=== PATIENT | female | born 1935 | race Caucasian/White ===

== ENCOUNTER 2018-02-23 08:30 | Inpatient (IN) ==
[2018-04-27] MEDS ORDERED: Chlorhexidine Gluconate 2% 1 Pack (2 Cloths) TOPICAL ONE (05:34)
[2018-04-27] MEDS ORDERED: Metoprolol Tartrate 25 MG Tablet PO ONE (05:34)
[2018-04-27] MEDS ORDERED: Dexamethasone Inj 20 MG/5 ML Vial IV.PUSH ONE (05:35)
[2018-04-27] MEDS ORDERED: Chlorhexidine 4% Topical 120 APPLIC/120 ML Bottle TOPICAL SCH (05:45)
[2018-04-27] MEDS ORDERED: Vancomycin Inj 1,000 MG in Sodium Chlor 0.9% Inj 250 ML IV.SIG SCH (06:00)
[2018-04-27] MEDS ORDERED: ceFAZolin 2 GM Premix Inj 2 GM/50 ML PIGGYBACK IV.SIG SCH (06:00)
[2018-04-27] MEDS ORDERED: Sodium Chlor 0.9% Inj 500 ML IV.SIG SCH (06:00)
[2018-04-27] MEDS ORDERED: fentaNYL Citrate Inj 100 MCG/2 ML Ampul ONE ×2 (06:19→07:50)
[2018-04-27] MEDS ORDERED: fentaNYL Citrate Inj 250 MCG/5 ML Ampul ONE (06:19)
[2018-04-27] MEDS ORDERED: Famotidine PF Inj 20 MG/2 ML Vial ONE (06:19)
[2018-04-27] MEDS ORDERED: Post-op Orders (for Pharmacy) OTHER STA (06:41)
[2018-04-27] MEDS ORDERED: Bisacodyl 10 MG Supp RECTAL PRN (06:41)
[2018-04-27] MEDS ORDERED: Zolpidem Tartrate 5 MG Tablet PO PRN (06:41)
[2018-04-27] MEDS ORDERED: Neostigmine Inj 5 MG/5 ML Syringe IV.PUSH ONE (06:47)
[2018-04-27] MEDS ORDERED: Phenylephrine/NS 1000 MCG/10ML Syringe IV.PUSH ONE (06:47)
[2018-04-27] MEDS ORDERED: Lidocaine PF 1% Inj 5 ML Syringe OTHER ONE (06:47)
[2018-04-27] MEDS ORDERED: Glycopyrrolate Inj 1 MG/5 ML Syringe IV.PUSH ONE (06:47)
[2018-04-27] MEDS ORDERED: Sodium Chlor 0.9% Inj 100 ML, Tranexamic Acid Inj 3,000 MG P-ARTICULR SCH ×2 (07:00)
[2018-04-27] MEDS ORDERED: TRANEXAMIC ACID IV.SIG SCH (07:00)
[2018-04-27] MEDS ORDERED: SODIUM CHLOR 0.9% IV.SIG SCH (07:00)
[2018-04-27] MEDS ORDERED: Sodium Chlor 0.9% Inj 73.07 ML, Ropivacaine 0.5% PF Inj 24.63 ML, Ketorolac Inj 30 MG, ... P-ARTICULR SCH ×5 (07:00)
[2018-04-27] MEDS ORDERED: Thrombin Topical Soln 5,000 UNIT Vial TOPICAL ONE (08:05)
[2018-04-27] MEDS ORDERED: *Meperidine Inj 25 MG/ML Vial PERIprocedural Use ONLY ONE (09:12)
--- NOTE | 2018-04-27 09:20 | MP ---
cc: Gigi Balbuena MD DATE OF OPERATION: 04/27/2018 PREOPERATIVE DIAGNOSIS: Left knee osteoarthritis. POSTOPERATIVE DIAGNOSIS: Left knee osteoarthritis. PROCEDURE: Left total knee arthroplasty. SURGEON: Gigi Balbuena MD. PACKER AND CARRY OUT: BEE Handy. ANESTHESIA: General. ESTIMATED BLOOD LOSS: 200 mL. TOURNIQUET TIME: 25 minutes at 250 mmHg. COMPLICATIONS: None. IMPLANT USED: DePuy Attune size 6 posterior stabilized femoral component, size 6 rotating platform tibial baseplate, size 7 mm polyethylene tibial insert, and size 38 patella. JUSTIFICATION: This patient is an 82-year-old female with a history of severe endstage osteoarthritis involving the left knee joint. She has severe disabling pain with standing, walking, ambulation with activities, and severe pain at rest. She has failed greater than 3 months of nonoperative conservative treatment to include medication therapy, injections, ambulatory assistive aids, home exercise program, activity modification, and weight loss. X-rays of the left knee reveal severe osteoarthritis with joint space narrowing, subchondral sclerosis, subchondral cyst, osteophyte formation with deformity and subluxation. The patient was counseled on risks, benefits, and alternatives to a total knee arthroplasty. The risks were discussed, which include, but are not limited to anesthesia, bleeding, infection, damage to nerves and blood vessels, pain, stiffness, failure of components, blood clots, pulmonary embolus, and even . The patient's pain is very severe. She favors the benefits over the risks and she did wish to proceed with surgery. PROCEDURE IN DETAIL: Written consent was obtained. The patient was identified by name, taken to the OR, and placed supine on the operating table. General anesthesia was administered, as well as 2 grams of IV Ancef and 1 gram of IV vancomycin. A well-padded tourniquet was placed on the left thigh. The left lower extremity prepped and draped using isopropyl alcohol, Hibiclens solution, and ChloraPrep solution. After a timeout was performed, an Esmarch bandage was used to exsanguinate the left lower extremity and tourniquet inflated to 250 mmHg. An longitudinal incision was made over the anterior aspect of the left knee. A medial parapatellar arthrotomy was performed. The patella was everted. A patellar resection guide was used to resect 9 mm of the patella. The size 38 mm guide was placed. Three drill holes were placed and the 38 mm trial fit well. Attention turned to the femur where an intramedullary guide was placed. The distal femoral guide was set to remove 10 mm of distal femur and 5 degrees off the anatomic valgus axis alignment. An oscillating saw was used to perform the distal femoral cut. Attention was turned to the tibia where an extramedullary tibial guide was set to remove 6 mm off the lowest portion of the medial tibial plateau. Tibia guide was pinned in place. The tibial cut was performed. A 5 mm spacer block showed full extension. Attention was turned back to the femur. AP sizer marked and measured as size 6. The anterior reference 3-degree external rotation guide was used to pin a size [address] The anterior, posterior, and chamfer cuts were performed. A size 6 PCL box cut pin was placed and the PCL was box cut with an oscillating saw. Medial and lateral meniscus remnants were removed, as well as bone and soft tissue debris from the posterior portion of the knee. A size 6 tibial base plate was pinned in place and the tibia was drilled with a punch. Trial components were evaluated and final components cemented into place. With the current components, the leg could achieve full extension to 0 degrees and flexion to 140. No evidence of tibial liftoff. Varus valgus balance appeared appropriate and symmetric, and the patella was noted to track centrally. Deflated. Bovie cautery was used for hemostasis. The surgical wound was thoroughly irrigated with sterile saline Pulsavac antibiotic-impregnated solution. The arthrotomy incision was closed with #1 Vicryl suture, subcutaneous layer with 2-0 Vicryl suture, skin was closed with Dermabond. Sterile dressing was applied. The patient tolerated the procedure well. No intraoperative complications noted. Aldair Lawton, Physician Automobile Mechanic Apprentice-Certified was present during the entire procedure to include patient positioning and the procedure itself. The medical necessity for physician tv production assistant was indicated in this case due to the complexity of the procedure. He assisted in appropriate manipulation of the leg and also retraction of muscle, tendon, bone, neurovascular structures. He assisted in preparation of bone and also implantation of the prosthetic replacement. MD GERMAN Bueno/milo , 08:33 AM , 08:42 AM
--- NOTE | 2018-04-27 10:24 | XR ---
EXAM DATE: 04/27/2018 10:12 AM EST AGE/SEX: 82 years / Female INDICATIONS: Post op left knee. CLINICAL DATA: This is the patient's initial encounter. Patient reports that signs and symptoms have been present for 1 day and indicates a pain score of Nonresponsive. MEDICAL/SURGICAL HISTORY: None. None. COMPARISON: No prior exams available for comparison. FINDINGS: Bony structures are intact and in normal alignment. Joints are intact without dislocation or signifi cant arthropathy. Osseous density is normal. Soft tissues are unremarkable. No radiopaque foreign bodies seen. CONCLUSION: The patient is post left knee arthroplasty. The hardware is intact. Alignment is good. Electronically signed by: Vamshi Kruger MD 04/27/2018 10:22 AM EST
[2018-04-27] MEDS: ceFAZolin 2 GM Premix Inj 2 GM/50 ML PIGGYBACK IV.SIG SCH ×3 (11:53→17:54)
[2018-04-27] MEDS: HYDROmorphone PF Inj 1 MG/ML Ampul IV.PUSH PRN (11:53)
[2018-04-27] MEDS ORDERED: Benzocaine 20% Oral Spray 60 ML Can OROPHARYNG PRN (15:30)
--- NOTE | 2018-04-27 15:30 | P.CON ---
History of Present Illness Service: [facility] Consult date: 04/27/18 Requesting Physician: Gigi Balbuena Reason for Consult: Post Op Medical Management Primary Care Provider: No Primary Care Physician Chief Complaint: osteoarthritis History of Present Illness: 82-year-old female with history of hypertension, hyperlipidemia, migraines, IBS , hypothyroidism, and severe osteoarthritis that failed multiple attempts at conservative treatment, now admitted to the hospital for left total knee arthroplasty by Dr. Balbuena. Hospitalists consulted for post op medical management. The patient is seen sitting upright in bedside chair post surgery. She reports feeling well currently. She states her left leg pain is well controlled after receiving pain medication. Denies any headache, chest pain, shortness of breath, or abdominal complaints. She does complain of some throat irritation from intubation. She has tolerated oral intake. She has no other medical complaints at this time. Review of Systems All other systems reviewed negative except as stated in HPI [facility] - History History Provided By: Patient - Medical History Medical History: Medical History (Last Reviewed 04/27/18 @ 15:22 by Amber Gould) [place] (hard of hearing) Hearing aid worn Hemangioma High cholesterol History of hysterectomy Hypertension Hypothyroidism IBS (irritable bowel syndrome) Joint pain Migraine with visual aura Osteoarthritis Wears glasses - Surgical History Surgical History: Surgical History (Last Updated 04/27/18 @ 15:23 by Amber Gould) History of appendectomy History of plastic surgery History of tonsillectomy - Family History Family History: Family History (Last Updated 04/27/18 @ 15:24 by Amber Gould) Mother Heart murmur Father Bowel disease - Social History I have reviewed the patient's Social History: Yes - Tobacco History Second Hand Smoke Exposure: No Tobacco Use In Past 30 Days: No Smoking Status: Never smoker - Alcohol History How Often Do You Have a Drink Containing Alcohol: Never - Substance Use History Substance History: No History of Abuse - Travel History Recent Travel in the [place] Within the Last 8 Weeks: No Recent Travel Out of the Country Within the Last 8 Weeks: No - Immunization History Tetanus Immunization: <5 Years Hx Influenza Vaccine This Season: No Medications and Allergies Active Medications: Active Medications Hydrocodone Bitart/Acetaminophen ([place] 7.5/325) 1 tab PO Q4H PRN PRN Reason: PAIN LESS THAN 5 ON SCALE Hydrocodone Bitart/Acetaminophen ([place] 7.5/325) 2 tab PO Q6H PRN PRN Reason: PAIN SCALE 5 TO 10 Al Hydroxide/Mg Hydroxide (Milk Of Magnesia Liq) 30 ml PO BID PRN PRN Reason: Mild Constipation Aspirin (Aspirin Chew) 81 mg PO BID [facility] Bisacodyl (Dulcolax Supp) 10 mg RECTAL DAILY PRN PRN Reason: SEVERE CONSITIPATION Chlorhexidine Gluconate (Hibiclens 4% Topical) 1 applicatio TOPICAL ONCE [facility] Stop: 05/01/18 05:44 Diphenhydramine HCl (Benadryl) 25 mg PO Q6H PRN PRN Reason: ITCHING Hydromorphone HCl (Dilaudid Pf Inj) 1 mg IV.PUSH Q3H PRN PRN Reason: BREAKTHROUGH PAIN Last Admin: 04/27/18 11:53 Dose: 1 mg Lactated Ringer's (Lr 1000 Ml Inj) 1,000 mls @ 30 mls/hr IV.SIG .Q24H [facility]DEEP Stop: 04/28/18 05:44 Last Infusion: 04/27/18 08:27 Dose: Infused Sodium Chloride (Ns Inj) 500 mls @ 30 mls/hr IV.SIG .Q10H [facility] Last Admin: 04/27/18 06:45 Dose: Not Given Vancomycin HCl 1,000 mg/ (Sodium Chloride) 250 mls @ 250 mls/hr IV.SIG GYM TEACHER [facility] Stop: 04/30/18 05:35 Last Infusion: 04/27/18 07:59 Dose: Infused Cefazolin Sodium/Dextrose (Ancef 2 Gm Premix Inj) 2 gm in 50 mls @ 100 mls/hr IV.SIG Q6H [facility] Stop: 04/28/18 00:59 Last Infusion: 04/27/18 12:23 Dose: Infused Lactated Ringer's (Lr 1000 Ml Inj) 1,000 mls @ 80 mls/hr IV.CONT .[id number] [facility] Last Admin: 04/27/18 09:27 Dose: 80 mls/hr Lactulose (Lactulose Liq) 30 ml PO DAILY PRN PRN Reason: SEVERE CONSITIPATION Levothyroxine Sodium (Synthroid) 75 mcg PO DAILY@0600 [facility] Lisinopril (Prinivil) 10 mg PO [facility] Miscellaneous Information (Misc Nursing Information) 0 each OTHER UNSCH PRN PRN Reason: SEE LABEL COMMENTS Stop: 04/28/18 08:48 Multivitamins/Minerals (Theragran-M) 1 tab PO BID [facility] Stop: 06/26/18 20:59 Ondansetron HCl (Zofran Inj) 4 mg IV.PUSH Q6H PRN PRN Reason: NAUSEA OR VOMITING Paroxetine HCl (Paxil) 20 mg PO DAILY [facility] Last Admin: 04/27/18 13:23 Dose: Not Given Povidone Iodine (Betadine 7.5% Scrub) 1 applicatio TOPICAL ONCE [facility] Stop: 05/01/18 05:59 Senna/Docusate Sodium (Rani-Colace) 1 tab PO BID [facility] Sennosides (Senokot) 17.2 mg PO BID PRN PRN Reason: Moderate Constipation Sodium Chloride (Ns Flush) 2 ml IV.FLUSH PRN PRN PRN Reason: FLUSH AFTER USING IV ACCESS Sodium Chloride (Ns Flush) 2 ml IV.FLUSH BID [facility] Zolpidem Tartrate (Ambien) 5 mg PO HS PRN PRN Reason: INSOMNIA Allergies Allergy/AdvReac Type Severity Reaction Status Date / Time No Known Allergies Allergy Verified 04/27/18 05:50 Home Medications Medication Instructions Recorded Confirmed Type acetaminophen [Acetaminophen Extra 500 mg PO Q6H PRN 04/23/18 04/27/18 History Strength] levothyroxine 75 mcg PO DAILY 04/23/18 04/27/18 History lisinopril 10 mg PO HS 04/23/18 04/27/18 History paroxetine HCl [Paxil] 20 mg PO DAILY 04/23/18 04/27/18 History Physical Exam Vital signs: Vital Signs 04/27/18 05:40 04/27/18 06:59 04/27/18 08:50 Temperature 98.5 F 97.6 F Pulse Rate 65 76 94 H Respiratory Rate 20 13 Blood Pressure 184/75 H 131/58 L Pulse Oximetry 97 99 92 L 04/27/18 09:00 04/27/18 09:15 04/27/18 09:30 Temperature Pulse Rate 86 75 75 Respiratory Rate 20 18 21 Blood Pressure 138/65 138/65 130/61 Pulse Oximetry 93 L 95 95 04/27/18 09:40 04/27/18 10:14 04/27/18 12:00 Temperature 97.9 F 97.5 F L 98.1 F Pulse Rate 76 74 73 Respiratory Rate 19 20 20 Blood Pressure 133/63 130/59 L 147/65 H Pulse Oximetry 95 90 L 93 L Intake & Output 04/26/18 04/27/18 04/27/18 18:59 06:59 18:59 Intake Total 2062.35 / 2062.35 Output Total 200 / 200 Balance 1862.35 / 1862.35 Weight 82.3 kg Intake: IV 1462.35 / 1462.35 LR 1000 mL Inj 1,000 ML @ 30 1000 / 1000 mls/hr IV.SIG .Q24H [facility]DE[facility] Rx#: [id number] Cyklokapron Inj 1,235 MG In NS 112.35 / 112.35 Inj 100 ML @ 200 mls/hr IV.SIG ONCE SUDEEP Rx#:[id number] Vancomycin Inj 1,000 MG In NS 250 / 250 Inj 250 ML @ 250 mls/hr IV.SIG GYM TEACHER SUDEEP Rx#:[id number] Ancef 2 GM Premix Inj 2 gm In 100 / 100 50 ml @ 100 mls/hr IV.SIG Q6H SUDEEP Rx#:[id number] Anesthesia Amount 600 / 600 Output: Estimated Blood Loss 200 / 200 Other: Weight On Admission 82.3 kg Narrative: GENERAL: Well-nourished, well-developed pleasant elderly female patient in [facility]. SKIN: Warm and dry. No rash. Old healed skin grafting and plastic surgery to right face. HEENT: Normocephalic. Atraumatic. Pupils equal and round. Mucous membranes pink and moist. NECK: Supple. Trachea midline. CARDIOVASCULAR: Regular rate and rhythm. No murmur appreciated. RESPIRATORY: No accessory muscle use. Clear to auscultation. Breath sounds equal bilaterally. GASTROINTESTINAL: Abdomen soft, non-tender, nondistended. Normoactive bowel sounds x4. MUSCULOSKELETAL: No obvious deformities. Left leg wrapped in surgical dressing from ankle to proximal thigh, CDI. NEUROLOGICAL: Awake and alert. No obvious cranial nerve deficits. Motor grossly within normal limits. Moving all extremities spontaneously. Normal speech. PSYCHIATRIC: Appropriate mood and affect; insight and judgment normal. Results - Labs Labs: Laboratory Results - last 24 hr 04/27/18 05:40 Blood Type O Positive Blood Type Recheck Required Antibody Screen Negative - Imaging Impressions Knee X-Ray 04/27/18 06:40 CONCLUSION: The patient is post left knee arthroplasty. The hardware is intact. Alignment is good. Assessment and Plan - Plan 82-year-old female with history of hypertension, hyperlipidemia, migraines, IBS , hypothyroidism, and severe osteoarthritis that failed multiple attempts at conservative treatment, now admitted to the hospital for left total knee arthroplasty by Dr. Balbuena. Hospitalists consulted for post op medical management. Severe Advanced Osteoarthritis s/p Left Total Knee Arthroplasty: surgery done by Dr. Balbuena -continue management per ortho -pain control with norco prn and IV dilaudid prn breakthrough pain -aspirin 81mg bid for DVT prophylaxis per ortho -PT consulted -check H&H and BMP in am Hypertension: chronic -continue patient's lisinopril 10mg hs -monitor BP, adjust antihypertensives as needed Hypothyroidism: chronic -continue patient's synthroid Depression: chronic -continue patient's paxil IBS: chronic -continue bowel regimen Sore throat: s/p intubation -benzocaine spray prn DVT Prophylaxis: on aspirin BID per ortho
[2018-04-27] MEDS: Multivitamin/Minerals Therapeutic Tablet PO SCH (20:36)
[2018-04-27] MEDS: Senna/Docusate Sodium 8.6/50 MG Tablet PO SCH (20:38)
[2018-04-27] MEDS ORDERED: Lisinopril 10 MG Tablet PO SCH (21:00)
[2018-04-28] MEDS: ceFAZolin 2 GM Premix Inj 2 GM/50 ML PIGGYBACK IV.SIG SCH (01:07)
[2018-04-28 05:44] LABS: Hematocrit 26.4 % (35.0-46.0); Hemoglobin 8.8 gm/dL (11.6-15.3)
[2018-04-28] MEDS ORDERED: Levothyroxine 75 MCG Tablet PO SCH (06:00)
[2018-04-28 06:08] LABS: Carbon Dioxide 28.6 meq/L (21.0-32.0)
--- NOTE | 2018-04-28 07:55 | P.PNOP ---
Subjective Interval history: pain controlled. Physical Exam Vital signs: Vital Signs 04/27/18 08:50 04/27/18 09:00 04/27/18 09:15 Temperature 97.6 F Pulse Rate 94 H 86 75 Respiratory Rate 13 20 18 Blood Pressure 131/58 L 138/65 138/65 Pulse Oximetry 92 L 93 L 95 04/27/18 09:30 04/27/18 09:40 04/27/18 10:14 Temperature 97.9 F 97.5 F L Pulse Rate 75 76 74 Respiratory Rate 21 19 20 Blood Pressure 130/61 133/63 130/59 L Pulse Oximetry 95 95 90 L 04/27/18 12:00 04/27/18 16:00 04/27/18 17:15 Temperature 98.1 F 98.1 F Pulse Rate 73 67 Respiratory Rate 20 18 18 Blood Pressure 147/65 H 112/55 L Pulse Oximetry 93 L 95 04/27/18 20:00 04/28/18 00:00 04/28/18 04:00 Temperature 97.8 F 97.7 F 98.0 F Pulse Rate 62 70 77 Respiratory Rate 17 17 17 Blood Pressure 124/59 L 118/59 L 126/63 Pulse Oximetry 98 94 L 98 Intake & Output 04/27/18 04/28/18 04/28/18 18:59 06:59 18:59 Intake Total 3072.35 / 3072.35 2049 Output Total 200 / 200 Balance 2872.35 / 2872.35 2049 Weight 83.5 kg Intake: IV 1512.35 / 1512.35 2049 LR 1000 mL Inj 1,000 ML @ 80 2000 / 2000 mls/hr IV.CONT .[id number] [facility] Rx# :[id number] LR 1000 mL Inj 1,000 ML @ 30 1000 / 1000 mls/hr IV.SIG .Q24H SUDEEP Rx#: [id number] Cyklokapron Inj 1,235 MG In NS 112.35 / 112.35 Inj 100 ML @ 200 mls/hr IV.SIG ONCE SUDEEP Rx#:[id number] Vancomycin Inj 1,000 MG In NS 250 / 250 Inj 250 ML @ 250 mls/hr IV.SIG POWER SHEAR OPERATOR SUDEEP Rx#:[id number] Ancef 2 GM Premix Inj 2 gm In 150 / 150 50 / 50 50 ml @ 100 mls/hr IV.SIG Q6H SUDEEP Rx#:[id number] Oral 960 / 960 Anesthesia Amount 600 / 600 Output: Estimated Blood Loss 200 / 200 Other: # Voids 0 2 Date of Last Bowel Movement 04/26/18 04/26/18 # Bowel Movements 0 Narrative: in bed, nad dressing c/d/i neg homans nvi Results - Labs CBC & Chem 7: 04/28/18 04:15 04/28/18 04:15 Laboratory Results - last 24 hr 04/28/18 04/28/18 04:15 04:15 Hgb 8.8 L Hct 26.4 L Sodium 142 Potassium 4.0 Chloride 106 Carbon Dioxide 28.6 Anion Gap 7 BUN 13 Creatinine 0.94 Estimated GFR 57 L Random Glucose 108 H Calcium 9.0 - Imaging Impressions Knee X-Ray 04/27/18 06:40 CONCLUSION: The patient is post left knee arthroplasty. The hardware is intact. Alignment is good. Assessment and Plan - Ortho Post Op Day # 1 - Assessment and Plan s/p L TKA wbat ok to maintain dressing unless saturated asa 83 d/c planning home with hhc and pt - cleared today PT f/up dr. myers 2 weeks
--- NOTE | 2018-04-28 07:55 | P.DCO ---
- Physical Therapy Physical Therapy: Gait training, Safety evaluation, Transfer training, bed to chair Knee: Total knee, Protocol: Left, Full weight bearing Left Lower Extremity Weight Bearing: Weight bearing as tolerated - Nursing RN: 3 days/week x 2 weeks Nursing: Dressing changes Dressing changes: Do not change dressing, Daily dressing change - Certification Need for Home Health services: I have seen patient Misty Power on 04/28/18. My clinical findings support the need for the requested home health care services because: Need for Home Health Services: Limited ability to care for self, High risk of falls Homebound Certification: I certify that my clinical findings support that this patient is homebound because: Homebound Certification: Post-op weakness, Unsafe to leave home unassisted
[2018-04-28] MEDS: Multivitamin/Minerals Therapeutic Tablet PO SCH (08:53)
[2018-04-28] MEDS: Senna/Docusate Sodium 8.6/50 MG Tablet PO SCH (08:53)
[2018-04-28] MEDS: HYDROmorphone PF Inj 1 MG/ML Ampul IV.PUSH PRN (08:55)
[2018-04-28 12:20] VITALS: BP 132/60; PULSE 84; RESP 18; TEMP 98.1; O2SAT 93
--- NOTE | 2018-04-29 07:24 | MD ---
cc: Gigi Balbuena MD DATE OF DISCHARGE: 04/28/2018 ADMITTING DIAGNOSIS: Severe degenerative osteoarthritis, left knee. DISCHARGE DIAGNOSIS: Severe degenerative osteoarthritis, left knee. HISTORY OF PRESENT ILLNESS: Mrs. Power is an 82-year-old female who is a longstanding patient of Dr[facility]. Currently, she is being treated for severe and progressive left knee pain. The patient states her pain is severe and aching sensation aggravated by weightbearing activities. She has no alleviating factors, although in the past, she has tried medications, assistive devices, physical therapy, home exercise program, and multiple corticosteroid injections without relief of symptoms. She does have x-ray evidence of severe degenerative osteoarthritis of the left knee. While in the office, the patient was counseled on her diagnosis and treatment options. Risks, benefits, and indications were all discussed. The patient did elect to proceed with surgical intervention to include a left total knee arthroplasty. PROCEDURE: Date of surgery 04/27/2018, left total knee arthroplasty. POSTOP: After surgery, the patient admitted to [facility] where she received appropriate medical management, pain control, DVT prophylaxis, as well as physical therapy. DISCHARGE: Once being discharged from the hospital, the patient is cleared to go home where she will receive home health care and home physical therapy. She is in stable condition. She may weight bear as tolerated. She has been instructed on wound care management. She has been provided prescriptions for pain control and DVT prophylaxis medication. She has also been provided a followup appointment in approximately 2 weeks from her date of surgery. Patient has asked appropriate questions which have been answered. The patient is cleared for discharge. Dictated by BEE ePnaloza Gigi Balbuena MD JWM/milo , 08:12 AM , 08:18 AM
== END 2018-04-28 15:17 | disposition home health service (06) ==
LOC: HSDI 04-27 05:08 → N06 04-27 09:54
PROVIDERS: ADMIT Orthopaedic Surgery Sports Medicine; ATTEND Orthopaedic Surgery Sports Medicine